=== PATIENT | female | born 1975 | race Two or more races ===

== ENCOUNTER 2016-11-25 17:06 | Emergency (ER) | payer OTHER ==
[~2016-11-25] VITALS: Ht 165.1 cm; Wt 97.1 kg
[~2016-11-25 17:06] MED LIST: BROM2.5T3; FLUT250M9; LEVO25TA9; LISI-646; LOSA100T22; MONT10TA23; RANI150C11; TRIA25CA
[2016-11-25 18:31] LABS: Basophils # (auto) 0.1 uL; Basophils % (auto) 0.9 % (0.0-2.0); Eosinophils # (auto) 0.2 uL; Hematocrit 39.9 % (36.0-46.0); Hemoglobin 13.4 g/dL (12.2-16.2); Lymphocytes # (auto) 2.2 uL; Mean Corpuscular Hemoglobin 32.1 pg (28.0-32.0); Mean Corpuscular Hgb Conc. 33.7 g/dL (32.0-36.0); Mean Corpuscular Volume 95.3 fL (80.0-100.0); Mean Platelet Volume 9.2 fL (7.4-10.4); Monocytes # (auto) 0.5 uL; Neutrophils # (auto) 7.3 uL; Neutrophils % (auto) 71.1 % (37.0-80.0); Platelet Count (auto) 354 10^3/uL (140-450); Red Cell Distribution Width 12.4 % (11.6-16.0); White Blood Cell 10.3 10^3/uL (4.4-10.8)
[2016-11-25 18:46] LABS: Albumin 3.7 g/dL (3.4-5.0); BUN/Creatinine Ratio 11.3; Calcium 8.6 mg/dL (8.5-10.1); Potassium 3.9 mmol/L (3.5-5.1)
[2016-11-25 18:49] LABS: Bilirubin, Total 0.3 mg/dL (0.2-1.0); Total Protein 7.8 g/dL (6.4-8.2)
[2016-11-26 05:55] LABS: Urine Bilirubin Negative (Negative); Urine Blood Negative /uL (Negative); Urine Ca Oxalate Crystal MANY (None Seen); Urine Color Yellow (Yellow); Urine Glucose Normal (Normal); Urine Ketone Negative (Negative); Urine Mucus FEW (None Seen); Urine Nitrite Negative (Negative); Urine RBC 5 /hpf (0 - 4); Urine Squamous Epithelial Cell FEW /hpf (<5); Urine pH 6.5 (5.0-8.0)
[2016-11-26 06:09] VITALS: BP 121/93
== END 2016-11-26 07:43 | disposition left against medical advice (07) ==
LOC: ER 17:23
DX: R10.9 Unspecified abdominal pain (principal); M54.9 Dorsalgia, unspecified; R80.9 Proteinuria, unspecified; Z53.21 Procedure and treatment not carried out due to patient leaving prior to being seen by health care provider
CPT/HCPCS: 36415; 80053; 81001; 85025; 85049

== ENCOUNTER 2019-07-20 19:52 | Emergency (ER) | payer OTHER ==
[~2019-07-20] VITALS: Ht 165.1 cm; Wt 108.4 kg
[2019-07-20 20:06] VITALS: BP 156/87
[2019-07-20 20:40] LABS: Urine Bacteria NONE SEEN /hpf (None Seen); Urine Blood Negative /uL (Negative); Urine Specific Gravity 1.027 (1.001-1.035); Urine WBC <1 /hpf (0 - 5)
== END 2019-07-20 23:07 | disposition left against medical advice (07) ==
LOC: ER 19:52
DX: R10.11 Right upper quadrant pain (principal); Z53.21 Procedure and treatment not carried out due to patient leaving prior to being seen by health care provider
CPT/HCPCS: 74176; 81001

== ENCOUNTER 2022-03-26 21:47 | Emergency (ER) | payer OTHER ==
[~2022-03-26] VITALS: Ht 165.1 cm; Wt 102.1 kg
[2022-03-26 21:47] VITALS: BP 132/67
[~2022-03-26 21:47] MED LIST changes: -BROM2.5T3; +BROM2.5T5; -LISI-646; +LISI20TA28
[2022-03-27] MEDS ORDERED: HYDR1TAB97 PO (02:42)
[2022-03-27] MEDS ORDERED: IBUP800T27 PO (02:42)
[2022-03-27] MEDS ORDERED: IBUPROFEN 800 MG TAB PO ONE (02:45)
[2022-03-27] MEDS ORDERED: HYDROcodone-ACET 5/325MG TAB PO ONE (02:45)
== END 2022-03-27 03:18 | disposition home or self-care (01) ==
LOC: ER 21:47
DX: S93.401A Sprain of unspecified ligament of right ankle, initial encounter (principal); S93.402A Sprain of unspecified ligament of left ankle, initial encounter; I12.9 Hypertensive chronic kidney disease with stage 1 through stage 4 chronic kidney disease, or unspecified chronic kidney disease; E11.22 Type 2 diabetes mellitus with diabetic chronic kidney disease; N18.9 Chronic kidney disease, unspecified; J45.909 Unspecified asthma, uncomplicated; Z90.710 Acquired absence of both cervix and uterus; Z79.899 Other long term (current) drug therapy; X50.1XXA Overexertion from prolonged static or awkward postures, initial encounter; Y93.89 Activity, other specified; Y92.89 Other specified places as the place of occurrence of the external cause; Y99.8 Other external cause status
CPT/HCPCS: 73610